=== PATIENT | female | born 1970 | race Caucasian/White ===

== ENCOUNTER 2016-08-01 19:52 | Emergency (ER) | payer SELFPAY ==
[2016-08-01 20:20] VITALS: BP 176/109
[2016-08-01 21:03] LABS: Basophils % (Auto) 0.6 % (0.0-1.8); Eosinophils % (Auto) 1.7 % (0.0-4.3); Hematocrit 34.9 % (30.3-42.9); Hemoglobin 11.7 gm/dl (10.1-14.3); Mean Corpuscular HGB Conc 34 % (30-34); Mean Corpuscular Hemoglobin 32 pg (28-32); Mean Corpuscular Volume 96 fl (79-97); Platelet Count 295 K/mm3 (140-440); Red Blood Count 3.63 M/mm3 (3.65-5.03); Red Cell Distribution Width 13.1 % (13.2-15.2); White Blood Count 6.3 K/mm3 (4.5-11.0)
[2016-08-01 21:07] LABS: Anion Gap 18 mmol/L; BUN/Creatinine Ratio 16.66; Blood Urea Nitrogen 15 mg/dL (7-17); Calcium 8.8 mg/dL (8.4-10.2); Carbon Dioxide 25 mmol/L (22-30); Chloride 98.1 mmol/L (98-107); Glucose 92 mg/dL (65-100); Potassium 3.6 mmol/L (3.6-5.0); Sodium 137 mmol/L (137-145)
[2016-08-01 21:12] LABS: INR 1.04 (0.87-1.13)
[2016-08-01 21:13] LABS: Partial Thromboplastin Time 27.7 Sec. (24.2-36.6)
--- NOTE | 2016-08-01 21:24 | Emergency Department Report ---
HPI - General Chief Complaint: Extremity Injury, Upper Time Seen by Provider: 08/01/16 21:18 - HPI HPI: She is a 45-year-old female presents to the ED complaining of right back shoulder pain 3 days. Patient states she was lifting some heavy objects on Sunday and feels that she overexerted herself. Patient states shoulder pain is worse with movement. Patient states she is put some heaving pad on it and it has helped with the pain. He describes it as aching type pain, nonradiating. Patient denies fevers/chills/nausea/vomiting/abdominal pain/chest pain/dizziness /weakness/blurry visions/headache /sob of breath or any other problems ED Past Medical Hx - Past Medical History Previous Medical History?: No - Surgical History Past Surgical History?: No - Social History Smoking Status: Current Every Day Smoker Substance Use Type: None - Medications Home Medications: Home Medications Medication Instructions Recorded Confirmed Last Taken Type Cyclobenzaprine [Flexeril] 10 mg PO QHS PRN #20 tablet 08/01/16 Unknown Rx Naproxen [Naprosyn] 500 mg PO BID #30 tablet 08/01/16 Unknown Rx ED Review of Systems ROS: Stated complaint: BREATHING/BODY PAIN Other details as noted in HPI Constitutional: denies: chills, fever Eyes: denies: eye pain, eye discharge, vision change ENT: denies: ear pain, throat pain Respiratory: denies: cough, shortness of breath, wheezing Cardiovascular: denies: chest pain, palpitations Endocrine: no symptoms reported Gastrointestinal: denies: abdominal pain, nausea, diarrhea Genitourinary: denies: urgency, dysuria, discharge Musculoskeletal: myalgia. denies: back pain, joint swelling, arthralgia Skin: denies: rash, lesions Neurological: denies: headache, weakness, paresthesias Psychiatric: denies: anxiety, depression Hematological/Lymphatic: denies: easy bleeding, easy bruising Physical Exam - Physical Exam Vital Signs: Vital Signs 08/01/16 20:15 Temperature 98.3 F Pulse Rate 68 Respiratory 14 Rate Blood Pressure 176/109 [Right] O2 Sat by Pulse 100 Oximetry Physical Exam: GENERAL: Alert and oriented x3, no apparent distress, Normal Gait, atraumatic. HEAD: Head is normocephalic and a-traumatic. EYES: Extra ocular muscles are intact. Pupils are equal, round, and reactive to light and accommodation. NECK: Supple. Non edematous, No carotid bruits. No lymphadenopathy or thyromegaly. No C-spine tenderness LUNGS: Symetrical with respiration, No wheezing, no rales or crackles, CTAB. HEART: S1, S2 present, regular rate and rhythm without murmur, no rubs, no gallops. ABDOMEN: No organomegaly was noted,Positive bowel sounds, soft, and non- distended. . Nontender to palpation on all Quadrants, NO CVA tenderness. EXTREMITIES/MUSCULOSKELETAL: No cyanosis, clubbing, rash, lesions or edema. Full ROM bilaterally all extremities. UE/LE Pulses 2+ bilaterally. LE and UE 5 + strength bilaterally. Full range of motion bilaterally of the shoulders. No tenderness of the palpation of the right trapezius muscles NEUROLOGIC: No focal Deficit, Cranial nerves II through XII are grossly intact. SKIN: Warm and dry, No lesions, No ulceration or induration present. ED Course Vital Signs 08/01/16 20:15 Temperature 98.3 F Pulse Rate 68 Respiratory 14 Rate Blood Pressure 176/109 [Right] O2 Sat by Pulse 100 Oximetry ED Medical Decision Making - Lab Data Result diagrams: 08/01/16 20:34 08/01/16 20:34 - EKG Data EKG shows normal: sinus rhythm Rate: normal - Medical Decision Making 45-year-old female presents to ED with shoulder strain. ED course: Patient received Toradol in the ED. CBC, CMP, cardiac enzymes all normal. EKG normal sinus rhythm. Discussed elevated blood pressure with patient. Patient denies history of blood pressure. Patient is asymptomatic. Discussed the patient to follow up with primary care physician is referred for blood pressure management. Vital signs are normal otherwise patient is in no acute distress. Patient understands all instructions given and states she will follow-up. Critical care attestation.: If time is entered above; I have spent that time in minutes in the direct care of this critically ill patient, excluding procedure time. ED Disposition Clinical Impression: Myalgia Muscle strain of right shoulder Qualifiers: Encounter type: initial encounter Qualified Code(s): S46.911A - Strain of unspecified muscle, fascia and tendon at shoulder and upper arm level, right arm , initial encounter Disposition: DISCHARGED TO HOME OR SELFCARE Is pt being admited?: No Does the pt Need Aspirin: No Condition: Stable Instructions: Muscle Strain (ED), Musculoskeletal Pain (ED), Arthralgia (ED), Heat Pack Application (ED) Additional Instructions: Take your medication as prescribed. Follow-up with primary care physician to be assessed for blood pressure If any symptoms such as dizziness headache blurry vision return to ED Prescriptions: Cyclobenzaprine [Flexeril] 10 mg PO QHS PRN #20 tablet PRN Reason: Muscle Spasm Naproxen [Naprosyn] 500 mg PO BID #30 tablet Referrals: PRIMARY CAREMD [Primary Care Provider] - 3-5 Days ARMANDO SLADE MD [Referring] - 3-5 Days [facility] [Outside] - 3-5 Days [facility] [Outside] - 3-5 Days [facility] [Outside] - 3-5 Days Forms: Work/School Release Form(ED) Time of Disposition: 22:22
[2016-08-01 21:45] LABS: Bilirubin,Urine NEG (Negative); Blood,Urine MOD (Negative); Ketones,Urine NEG (Negative); Leukocyte Esterase,Urine NEG (Negative); Mucus,Urine FEW /HPF; Nitrite,Urine NEG (Negative); Protein,Urine <15 mg/dL mg/dL (Negative); Urobilinogen,Urine < 2.0 mg/dL (<2.0)
[2016-08-01] MEDS ORDERED: TORADOL IM ONE (22:19)
--- NOTE | 2016-08-01 22:43 | XRay Report ---
FINAL REPORT EXAM: XR CHEST ROUTINE 2V HISTORY: Shortness of breath TECHNIQUE: Two view chest PA and lateral PRIORS: None. FINDINGS: Cardiac and mediastinal contours are unremarkable. No focal pulmonary infiltrate is identified. No pleural fluid collection seen. Pulmonary vasculature is unremarkable. IMPRESSION: Negative two-view chest
== END 2016-08-01 22:47 | disposition home or self-care (01) ==
LOC: ED 19:52
DX: S46.911A Strain of unspecified muscle, fascia and tendon at shoulder and upper arm level, right arm, initial encounter (principal); M79.1 Myalgia; F17.200 Nicotine dependence, unspecified, uncomplicated; X58.XXXA Exposure to other specified factors, initial encounter; Y93.89 Activity, other specified; Y99.8 Other external cause status; Y92.89 Other specified places as the place of occurrence of the external cause
CPT/HCPCS: 36415; 71020; 80048; 81001; 81025; 84484; 85025; 85610; 85730; 93005; 93010; 96372; 99284; J1885

== ENCOUNTER 2019-01-07 09:37 | Emergency (ER) | payer SELFPAY ==
[2019-01-07 09:42] VITALS: BP 173/83
--- NOTE | 2019-01-07 09:55 | Emergency Department Report ---
ED Female HPI - General Chief complaint: Abdominal Pain Stated complaint: ABD PAIN Time Seen by Provider: 01/07/19 09:52 Source: patient Mode of arrival: Ambulatory Limitations: No Limitations - History of Present Illness Initial comments: Mrs. Aster Ceja is a very pleasant healthy 48-year-old female without significant past medical history who presents with vaginal irritation without discharge for the past 2 days. When she urinates the labia are irritated. No vaginal discharge no vaginal bleeding. No fever. No abdominal pain. Gradual onset of symptoms. No history of STD exposure. MD Complaint: vaginal discharge -: Gradual, days(s) (2) Location: labia Severity: mild Quality: burning Consistency: constant Worsens with: urination Are you Now?: No Associated Symptoms: denies other symptoms - Related Data Previous Rx's Medication Instructions Recorded Last Taken Type Cyclobenzaprine [Flexeril] 10 mg PO QHS PRN #20 tablet 08/01/16 Unknown Rx Naproxen [Naprosyn] 500 mg PO BID #30 tablet 08/01/16 Unknown Rx Fluconazole [Diflucan TAB] 150 mg PO ONCE #1 tablet 01/07/19 Unknown Rx metroNIDAZOLE [Flagyl TAB] 500 mg PO Q12HR 7 Days #14 tab 01/07/19 Unknown Rx Allergies Allergy/AdvReac Type Severity Reaction Status Date / Time No Known Allergies Allergy Verified 01/07/19 09:42 ED Review of Systems ROS: Stated complaint: ABD PAIN Other details as noted in HPI Constitutional: denies: fever, malaise Gastrointestinal: denies: abdominal pain, nausea, vomiting, diarrhea Genitourinary: denies: urgency, dysuria, frequency, hematuria, discharge ED Past Medical Hx - Past Medical History Previous Medical History?: No - Surgical History Past Surgical History?: Yes Additional Surgical History: ectopic - Social History Smoking Status: Never Smoker Substance Use Type: None - Medications Home Medications: Home Medications Medication Instructions Recorded Confirmed Last Taken Type Cyclobenzaprine [Flexeril] 10 mg PO QHS PRN #20 tablet 08/01/16 Unknown Rx Naproxen [Naprosyn] 500 mg PO BID #30 tablet 08/01/16 Unknown Rx Fluconazole [Diflucan TAB] 150 mg PO ONCE #1 tablet 01/07/19 Unknown Rx metroNIDAZOLE [Flagyl TAB] 500 mg PO Q12HR 7 Days #14 tab 01/07/19 Unknown Rx ED Physical Exam - General Limitations: No Limitations General appearance: alert, in no apparent distress - Head Head exam: Present: atraumatic, normocephalic - Eye Eye exam: Present: normal appearance - ENT ENT exam: Present: mucous membranes moist - Neck Neck exam: Present: normal inspection, full ROM - Respiratory Respiratory exam: Present: normal lung sounds bilaterally. Absent: respiratory distress, wheezes, rales, rhonchi - Cardiovascular Cardiovascular Exam: Present: regular rate, normal rhythm, normal heart sounds. Absent: systolic murmur, diastolic murmur, rubs, gallop - GI/Abdominal GI/Abdominal exam: Present: soft, normal bowel sounds. Absent: distended, tenderness, guarding, rebound - Extremities Exam Extremities exam: Present: normal inspection - Back Exam Back exam: Present: normal inspection - Neurological Exam Neurological exam: Present: alert, oriented X3 - Psychiatric Psychiatric exam: Present: normal affect, normal mood - Skin Skin exam: Present: warm, dry, intact, normal color. Absent: rash ED Course Vital Signs 01/07/19 09:38 Temperature 97.9 F Pulse Rate 70 Respiratory 16 Rate Blood Pressure 173/83 [Right] O2 Sat by Pulse 100 Oximetry ED Medical Decision Making - Medical Decision Making Vaginal irritation: Diagnosis vaginitis: With this presentation I do not suspect PID or cervicitis. Prescribed fluconazole and metronidazole Critical care attestation.: If time is entered above; I have spent that time in minutes in the direct care of this critically ill patient, excluding procedure time. ED Disposition Clinical Impression: Vaginitis Disposition: DC-01 TO HOME OR SELFCARE Is pt being admited?: No Does the pt Need Aspirin: No Condition: Stable Instructions: Vaginitis (ED) Prescriptions: Fluconazole [Diflucan TAB] 150 mg PO ONCE #1 tablet metroNIDAZOLE [Flagyl TAB] 500 mg PO Q12HR 7 Days #14 tab Referrals: [facility] [Outside] - 3-5 Days Forms: Work/School Release Form(ED)
== END 2019-01-07 10:03 | disposition home or self-care (01) ==
LOC: ED 09:37
DX: N76.0 Acute vaginitis (principal)
CPT/HCPCS: 99282

== ENCOUNTER 2019-07-31 12:18 | Emergency (ER) | payer SELFPAY ==
[2019-07-31 12:25] VITALS: BP 157/88
[2019-07-31 13:56] LABS: Bilirubin,Urine NEG (Negative); Blood,Urine SM (Negative); Color,Urine Yellow (Yellow); Mucus,Urine FEW /HPF; Protein,Urine <15 mg/dL mg/dL (Negative); Urobilinogen,Urine < 2.0 mg/dL (<2.0)
[2019-07-31 13:58] LABS: HCG Qualitative,Urine Negative (Negative)
--- NOTE | 2019-07-31 14:13 | Emergency Department Report ---
ED Female HPI - General Chief complaint: Urogenital-Female Stated complaint: VAGINAL IRRITATION Time Seen by Provider: 07/31/19 12:43 Source: patient Mode of arrival: Ambulatory Limitations: No Limitations - History of Present Illness Initial comments: This is a 48-year-old female nontoxic, well nourished in appearance, no acute signs of distress presents to the ED with c/o of vaginal irritation, itching, and some vaginal discharge x2 weeks. Patient stated has similar symptoms last year and was diagnosed with a vaginal yeast. Patient stated she is not sexually active and is not concerned about STD. Patient denies any vaginal pain or swelling. Patient denies any vaginal ulcers or lesions. Patient denies any nausea, vomiting, chest pain, shortness of breathe, fever, chills, headache, back pain, numbness, tingling, stiff neck. Patient denies any urinary symptoms. Patient denies any allergies. MD Complaint: other (vaginal itching and irritation) -: week(s) (2) Radiation: non-radiating Improves with: none Worsens with: none Associated Symptoms: vaginal discharge. denies: vaginal bleeding, abdominal pain, nausea/vomiting, fever/chills, headaches, loss of appetite, dysuria, hematuria, rash, seizure, shortness of breath, syncope, weakness - Related Data Sexually active: No Previous Rx's Medication Instructions Recorded Last Taken Type Cyclobenzaprine [Flexeril] 10 mg PO QHS PRN #20 tablet 08/01/16 Unknown Rx Naproxen [Naprosyn] 500 mg PO BID #30 tablet 08/01/16 Unknown Rx Fluconazole [Diflucan TAB] 150 mg PO ONCE #1 tablet 01/07/19 Unknown Rx metroNIDAZOLE [Flagyl TAB] 500 mg PO Q12HR 7 Days #14 tab 01/07/19 Unknown Rx metroNIDAZOLE [Flagyl] 500 mg PO Q12HR #14 tab 07/31/19 Unknown Rx Allergies Allergy/AdvReac Type Severity Reaction Status Date / Time No Known Allergies Allergy Verified 07/31/19 12:19 ED Review of Systems ROS: Stated complaint: VAGINAL IRRITATION Other details as noted in HPI Constitutional: denies: chills, fever Eyes: denies: eye pain, eye discharge, vision change ENT: denies: ear pain, throat pain Respiratory: denies: cough, shortness of breath, wheezing Cardiovascular: denies: chest pain, palpitations Endocrine: no symptoms reported Gastrointestinal: denies: abdominal pain, nausea, diarrhea Genitourinary: discharge. denies: urgency, dysuria, frequency, hematuria, abnormal menses, dyspareunia Musculoskeletal: denies: back pain, joint swelling, arthralgia Skin: denies: rash, lesions Neurological: denies: headache, weakness, paresthesias Psychiatric: denies: anxiety, depression Hematological/Lymphatic: denies: easy bleeding, easy bruising ED Past Medical Hx - Past Medical History Previous Medical History?: No - Surgical History Additional Surgical History: ectopic - Social History Smoking Status: Never Smoker Substance Use Type: None - Medications Home Medications: Home Medications Medication Instructions Recorded Confirmed Last Taken Type Cyclobenzaprine [Flexeril] 10 mg PO QHS PRN #20 tablet 08/01/16 Unknown Rx Naproxen [Naprosyn] 500 mg PO BID #30 tablet 08/01/16 Unknown Rx Fluconazole [Diflucan TAB] 150 mg PO ONCE #1 tablet 01/07/19 Unknown Rx metroNIDAZOLE [Flagyl TAB] 500 mg PO Q12HR 7 Days #14 tab 01/07/19 Unknown Rx metroNIDAZOLE [Flagyl] 500 mg PO Q12HR #14 tab 07/31/19 Unknown Rx ED Physical Exam - General Limitations: No Limitations General appearance: alert, in no apparent distress - Head Head exam: Present: atraumatic, normocephalic - External exam: Present: normal external exam, other ([employer] director of student services present during exam). Absent: erythema, swelling, lesions, lacerations, ecchymosis, bleeding Speculum exam: Present: cervical discharge, other ([employer] director of student services present during exam). Absent: erythema, vaginal discharge, vaginal bleeding, foreign body, tissue, laceration Bi-manual exam: Present: normal bi-manual exam, other ([employer] director of student services present during exam). Absent: cervical motion tendernes, adnexal tenderness, adnexal mass, uterine enlargement, uterine tenderness - Extremities Exam Extremities exam: Present: normal inspection - Back Exam Back exam: Present: normal inspection, full ROM - Neurological Exam Neurological exam: Present: alert, oriented X3, normal gait - Psychiatric Psychiatric exam: Present: normal affect, normal mood - Skin Skin exam: Present: warm, dry, intact, normal color. Absent: rash ED Course Vital Signs 07/31/19 12:20 Temperature 98.2 F Pulse Rate 80 Respiratory 18 Rate Blood Pressure 157/88 O2 Sat by Pulse 100 Oximetry - Reevaluation(s) Reevaluation #1: 07/31/19 14:13 Patient is speaking in full sentences with no signs of distress noted. ED Medical Decision Making - Medical Decision Making This is a 48-year-old female that presents with bacterial vaginosis. Patient is stable and was examined by me. [employer] has been present during full physical assessment. Urine is within normal limits. Patient be treated with Flagyl. Patient was instructed to return in 3 to 5 days for gonorrhea chlamydia results. Patient was instructed to follow-up with a primary care doctor in 3-5 days or if symptoms worsen and continue return to emergency room as soon as possible. At time of discharge, the patient does not seem toxic or ill in appearance. No acute signs of distress noted. Patient agrees to discharge treatment plan of care. No further questions noted by the patient. Critical care attestation.: If time is entered above; I have spent that time in minutes in the direct care of this critically ill patient, excluding procedure time. ED Disposition Clinical Impression: Bacterial vaginosis Disposition: DC-01 TO HOME OR SELFCARE Is pt being admited?: No Does the pt Need Aspirin: No Condition: Stable Instructions: Metronidazole (By mouth), Bacterial Vaginosis (ED) Additional Instructions: Follow-up with a primary care doctor in 3-5 days or if symptoms worsen and continue return to emergency room as soon as possible. Prescriptions: metroNIDAZOLE [Flagyl] 500 mg PO Q12HR #14 tab Referrals: JACLYN DORADO MD [Primary Care Provider] - 3-5 Days BRENTON RAY MD [Staff Physician] - 3-5 Days Time of Disposition: 14:55
== END 2019-07-31 15:17 | disposition home or self-care (01) ==
LOC: ED 12:18
DX: N76.0 Acute vaginitis (principal); B96.89 Other specified bacterial agents as the cause of diseases classified elsewhere; Z79.899 Other long term (current) drug therapy
CPT/HCPCS: 81001; 81025; 87210; 87591; 99283

== ENCOUNTER 2019-08-07 08:13 | Emergency (ER) | payer SELFPAY ==
[2019-08-07 08:19] VITALS: BP 155/92
--- NOTE | 2019-08-07 08:42 | Emergency Department Report ---
Chief Complaint: Urogenital-Female Stated Complaint: UTI Time Seen by Provider: 08/07/19 08:22 - HPI History of Present Illness: In ER last week. SEE EMR vaginitis persists - ROS Review of Systems: vaginitis no fever no chills no abd pain no back pain no vag discharge or bleeding - Exam Vital Signs: Vital Signs 08/07/19 08/07/19 08:14 08:18 Temperature 97.4 F L 97.4 F L Pulse Rate 85 83 Respiratory 16 20 Rate Blood Pressure 155/92 155/92 O2 Sat by Pulse 100 100 Oximetry Physical Exam: a/o nad abd snt no cva tenderness MSE screening note: Focused history and physical exam performed. Due to findings the following was ordered: took flagyl GC neg/ wet prep noted Did not follow up as instructed Needs to see OB [facility] Patient discussed with doctor:: NATHAN SANTIAGO ED Disposition for MSE Is pt being admited?: No Does the pt Need Aspirin: No Condition: Stable Referrals: PRIMARY CARE, [Primary Care Provider] - 3-5 Days Time of Disposition: 08:42
== END 2019-08-07 08:57 | disposition left against medical advice (07) ==
LOC: ED 08:13
DX: N76.0 Acute vaginitis (principal); Z98.890 Other specified postprocedural states
CPT/HCPCS: 99282